=== PATIENT | female | born 1945 | race Caucasian/White ===

== ENCOUNTER → 2020-11-13 | Day surgery (SDC) | payer MEDICARE, BC ==
[~2020-11-13] MED LIST: FLU VACC QS2020-21(65YR UP)/PF 240 MCG/0.7 ML SYRINGE IM ONE; Lidocaine 1% PF 5 ML VIAL ONE; Sodium Bicarbonate 2.5 MEQ/5 ML VIAL ONE
[2020-11-13 12:36] LABS: ALT (SGPT) 21 U/L (8-55); AST (SGOT) 33 U/L (5-34); Albumin 3.7 g/dL (3.4-4.8); Alkaline Phosphatase 160 U/L (40-110); Anion Gap 12 mmol/L (10-20); BUN (Urea Nitrogen) 16 mg/dL (9.8-20.1); Bilirubin, Total 0.9 mg/dL (0.2-1.2); Calc. Creatinine Clearance 0 mL/min (70-130); Calcium 9.5 mg/dL (7.8-10.44); Carbon Dioxide 23 mmol/L (23-31); Chloride 105 mmol/L (98-107); Globulin 4.3 g/dL (2.4-3.5); Glucose 119 mg/dL (83-110); Potassium 4.4 mmol/L (3.5-5.1); Sodium 136 mmol/L (136-145)
[2020-11-13 13:32] VITALS: BP 160/68; TEMP 98.2; BMI 27.6
== END ==
LOC: CSHULT 11:36
PROVIDERS: ATTEND Internal Medicine Gastroenterology
DX: R18.8 Other ascites (principal); K74.60 Unspecified cirrhosis of liver; K72.90 Hepatic failure, unspecified without coma
CPT/HCPCS: 76705; 80053

== ENCOUNTER 2023-05-16 16:10 | Outpatient (CLI) | payer MEDICARE, BC | END 2023-05-16 16:11 | disposition home or self-care (01) | LOC: CSHRAD 16:10 | PROVIDERS: ATTEND Neurological Surgery | DX: S12.110A Anterior displaced Type II dens fracture, initial encounter for closed fracture (principal); M47.812 Spondylosis without myelopathy or radiculopathy, cervical region | CPT/HCPCS: 72040 ==